=== PATIENT | female | born 1975 ===

== ENCOUNTER 2017-09-27 08:58 | Inpatient (IN) | payer SELFPAY ==
[2017-09-27 08:58] VITALS: BMI 27.0
--- NOTE | 2017-09-27 09:16 | ED PDOC ---
HPI: General Adult Time Seen by Provider: 09/27/17 09:10 Chief Complaint (Nursing): Flu-like Symptoms Chief Complaint (Provider): Flu-like Symptoms History Per: Patient History/Exam Limitations: no limitations Onset/Duration Of Symptoms: Days (x2) Current Symptoms Are (Timing): Still Present Additional Complaint(s): Trudy Blanco is a 42 year old female with no significant past medical history, who presents to the ED complaining of a productive cough with yellow sputum associated with right sided chest pain x2 days. Denies shortness of breath and fever. PMD: Non-[facility] Provider Past Medical History Reviewed: Historical Data, Nursing Documentation, Vital Signs Vital Signs: Last Vital Signs Temp 98.3 F 09/27/17 09:05 Pulse 82 09/27/17 09:05 Resp 20 09/27/17 09:05 BP 148/88 09/27/17 09:05 Pulse Ox 98 09/27/17 10:28 - Medical History PMH: Anemia, Gall Bladder Disease Denies: Chronic Kidney Disease - Surgical History Surgical History: Cholecystectomy - Family History Family History: States: Unknown Family Hx - Home Medications Home Medications: Ambulatory Orders Medication Instructions Recorded Docusate Sodium/Sennosides A 2 tab PO Q12 PRN #0 tab 11/18/16 [Senokot S 50 MG-8.6 MG] Ferrous Sulfate [Feosol] 325 mg PO DAILY #30 tab 11/18/16 Ibuprofen [Motrin Tab] 600 mg PO Q6 PRN #30 tab 11/18/16 oxyCODONE/Acetaminophen [Percocet 2 tab PO Q4 PRN #30 tab 11/18/16 5/325 mg Tab] - Allergies Allergies/Adverse Reactions: Allergies Allergy/AdvReac Type Severity Reaction Status Date / Time No Known Allergies Allergy Verified 09/27/17 09:05 Review of Systems ROS Statement: Except As Marked, All Systems Reviewed And Found Negative Constitutional: Negative for: Fever Cardiovascular: Positive for: Chest Pain (left sided) Respiratory: Positive for: Cough, Sputum (yellow). Negative for: Shortness of Breath Physical Exam - Reviewed Nursing Documentation Reviewed: Yes Vital Signs Reviewed: Yes - Physical Exam Appears: Positive for: Non-toxic, No Acute Distress ENT: Positive for: Normal ENT Inspection Neck: Positive for: Normal, Painless ROM, Supple Cardiovascular/Chest: Positive for: Regular Rate, Rhythm. Negative for: Murmur Respiratory: Positive for: Rhonchi (scattered). Negative for: Wheezing, Respiratory Distress Extremity: Positive for: Normal ROM. Negative for: Tenderness, Swelling Neurologic/Psych: Positive for: Alert, Oriented (x3) - Laboratory Results Result Diagrams: 09/27/17 09:58 09/27/17 09:58 - ECG O2 Sat by Pulse Oximetry: 98 (RA) Pulse Ox Interpretation: Normal Medical Decision Making Medical Decision Makin:13 Initial Impression: Bronchitis Plan: --Chest X-Ray 2 views --CT Abd and Pelvis --CMP --CBC w/ differential --Sodium Chloride 0.9% 1,000 ml IV --Iohexol 50 ml PO --Reevaluation 10:09 Chest X-Ray FINDINGS: LUNGS: No active pulmonary disease. PLEURA: No significant pleural effusion identified. No pneumothorax apparent. CARDIOVASCULAR: Normal. OSSEOUS STRUCTURES: No significant abnormalities. VISUALIZED UPPER ABDOMEN: Free intraperitoneal air. Right upper quadrant surgical clips. OTHER FINDINGS: None. IMPRESSION: No acute pulmonary disease. Free intraperitoneal air. Scribe Attestation: Documented by Jonatan Lee acting as a scribe for Kush Mayer MD. Scribe Attestation: All medical record entries made by the Scribe were at my direction and personally dictated by me. I have reviewed the chart and agree that the record accurately reflects my personal performance of the history, physical exam, medical decision making, and the department course for this patient. I have also personally directed, reviewed, and agree with the discharge instructions and disposition. Disposition - Clinical Impression Clinical Impression: Pneumoperitoneum - Patient ED Disposition Is Patient to be Admitted: Yes - Disposition Disposition Time: 12:49 Condition: FAIR Forms: Q Chip (Greek) - Pt Status Changed To: Hospital Disposition Of: Observation - POA Present On Arrival: None
[2017-09-27] MEDS ORDERED: Iohexol 240 (50 ml) PO ONE (09:49)
[2017-09-27] MEDS ORDERED: Sodium Chloride 0.9% 1,000 ML IV STA (09:50)
--- NOTE | 2017-09-27 09:53 | RAD ---
HISTORY: cough COMPARISON: No prior. TECHNIQUE: Chest PA and lateral FINDINGS: LUNGS: No active pulmonary disease. PLEURA: No significant pleural effusion identified. No pneumothorax apparent. CARDIOVASCULAR: Normal. OSSEOUS STRUCTURES: No significant abnormalities. VISUALIZED UPPER ABDOMEN: Free intraperitoneal air. Right upper quadrant surgical clips. OTHER FINDINGS: None. IMPRESSION: No acute pulmonary disease. Free intraperitoneal air. Findings conveyed to Dr. Mayer by Dr. Duque at 9:47 a.m. on 09/27/2017.
[2017-09-27] MEDS ORDERED: Iohexol 240 (50 ml) ONE (09:58)
[2017-09-27 10:03] LABS: BASO # 0.1 K/uL (0.0-0.2); BASO % 0.8 % (0.0-2.0); EOS # 0.3 K/uL (0.0-0.7); EOS % 3.7 % (0.0-4.0); HEMOGLOBIN 13.9 g/dL (12.0-16.0); LYMPH # 1.9 K/uL (1.0-4.3); LYMPH % 24.9 % (20.0-40.0); MEAN CELL VOLUME 89.5 fl (81.0-99.0); MEAN CORPUSCULAR HEMOGLOBIN 30.5 pg (27.0-31.0); MEAN CORPUSCULAR HGB CONC 34.1 g/dL (33.0-37.0); MONO # 0.9 K/uL (0.0-0.8); NEUT # 4.4 K/uL (1.8-7.0); NEUT % 58.6 % (50.0-75.0); NRBC % 0.1 % (0.0-0.0); RBC 4.55 Mil/uL (3.80-5.20); RED CELL DISTRIBUTION WIDTH 13.4 % (11.5-14.5); WHITE BLOOD COUNT 7.6 K/uL (4.8-10.8)
[2017-09-27 10:14] LABS: ALB/GLOB RATIO 1.2 (1.0-2.1); ALBUMIN 4.1 g/dL (3.5-5.0); ALT/SGPT 48 U/L (9-52); AST/SGOT 20 U/L (14-36); BLOOD UREA NITROGEN 12 mg/dl (7-17); CALCIUM 8.7 mg/dL (8.4-10.2); GFR AFRICAN-AMERICAN > 60; GFR NON-AFRICAN AMERICAN > 60
--- NOTE | 2017-09-27 12:36 | CT ---
PROCEDURE: CT Abdomen and Pelvis without intravenous contrast HISTORY: Free air under diaphragm on CXE COMPARISON: None. TECHNIQUE: Without contrast.. Contrast Dose: 0 Radiation dose: Total exam DLP = 529.86 mGy-cm. This CT exam was performed using one or more of the following dose reduction techniques: Automated exposure control, adjustment of the mA and/or kV according to patient size, and/or use of iterative reconstruction technique. FINDINGS: LOWER THORAX: Unremarkable. LIVER: Unremarkable. No gross lesion or ductal dilatation. GALLBLADDER AND BILE DUCTS: Status post cholecystectomy PANCREAS: Unremarkable. No gross lesion or ductal dilatation. SPLEEN: Unremarkable. ADRENALS: Unremarkable. No mass. KIDNEYS AND URETERS: Unremarkable. No hydronephrosis. No solid mass. VASCULATURE: Unremarkable. No aortic aneurysm. BOWEL: Unremarkable. No obstruction. No gross mural thickening. APPENDIX: Unremarkable. Normal appendix. PERITONEUM: There is moderate free air beneath the diaphragm. There is no ascites. The source of the pneumoperitoneum is not evident. LYMPH NODES: Unremarkable. No enlarged lymph nodes. BLADDER: Unremarkable. REPRODUCTIVE: Status post hysterectomy. BONES: No acute fracture. OTHER FINDINGS: None. IMPRESSION: Free intraperitoneal air without evident source. No abnormal bowel appreciated. Status post cholecystectomy and hysterectomy.
--- NOTE | 2017-09-27 13:57 | CP.PCM.HP ---
<Drew Metz - Last Filed: 09/27/17 14:33> History of Present Illness - History of Present Illness History of Present Illness: 42 YO nulligravida F w/ h/o NEFTALI on 11/2016 presents to the ER for right sided shoulder pain which is reproducible on palpation as well as a cough and nasal congestion which has been ongoing for the past three days. When patient coughs she has been having epigastric pain which is 5/10 in intensity and radiates to the right shoulder. Denies any trauma, SOB, nausea, vomiting , fever. This has never occurred in the past. She has been having normal bowl movements with no blood in the stool. Patient last had sexual intercourse 2 days ago, with no discomfort. Denies any abnormal vaginal discharge. PMHx: Chronic Anemia, Uterine fibroids, Gallstones, FHx: Denies PSHx: Lap. Cholecystectomy, [facility] 11/04/16 ScHx: Denies TOB, ETOH, Drugs OBHx: Nulligravida GYNHx: Menorrhagia requring blood transfusions, Uterine fibroids. [facility] 11/04/16 PCP: [facility] OBGYN: Dr Gastelum Allergies: NKDDA Home Meds: See med list Present on Admission - Present on Admission Any Indicators Present on Admission: No Past Patient History - Infectious Disease Hx of Infectious Diseases: None - Past Medical History & Family History Past Medical History?: Yes - Past Social History Smoking Status: Never Smoked - CARDIAC Hx Cardiac Disorders: No - NEUROLOGICAL Hx Neurological Disorder: No - HEENT Hx HEENT Problems: No - RENAL Hx Chronic Kidney Disease: No - ENDOCRINE/METABOLIC Hx Endocrine Disorders: No - HEMATOLOGICAL/ONCOLOGICAL Hx Anemia: Yes - INTEGUMENTARY Hx Dermatological Problems: No - MUSCULOSKELETAL/RHEUMATOLOGICAL Hx Musculoskeletal Disorders: No Hx Falls: No - GASTROINTESTINAL Hx Gall Bladder Disease: Yes - GENITOURINARY/GYNECOLOGICAL Hx Genitourinary Disorders: Yes Other/Comment: Abnormal uterine bleeding (AUB), Uterine fibroids - PSYCHIATRIC Hx Psychophysiologic Disorder: No Hx Emotional Abuse: No Hx Physical Abuse: No Hx Substance Use: No - SURGICAL HISTORY Hx Cholecystectomy: Yes - ANESTHESIA Hx Anesthesia: Yes Hx Anesthesia Reactions: No Hx Malignant Hyperthermia: No Meds Allergies/Adverse Reactions: Allergies Allergy/AdvReac Type Severity Reaction Status Date / Time No Known Allergies Allergy Verified 09/27/17 09:05 Physical Exam - Constitutional Appears: No Acute Distress - Head Exam Head Exam: NORMAL INSPECTION - Eye Exam Eye Exam: Normal appearance - Respiratory Exam Respiratory Exam: Clear to Auscultation Bilateral, NORMAL BREATHING PATTERN. absent: Rales, Rhonchi, Wheezes - Cardiovascular Exam Cardiovascular Exam: REGULAR RHYTHM, +S1, +S2 - GI/Abdominal Exam GI & Abdominal Exam: Normal Bowel Sounds, Soft. absent: Tenderness - Extremities Exam Extremities exam: Positive for: normal inspection. Negative for: calf tenderness Additional comments: right shoulder tenderness - Neurological Exam Neurological exam: Alert, CN II-XII Intact, Oriented x3 - Skin Skin Exam: Normal Color, Warm Results - Vital Signs Recent Vital Signs: Last Vital Signs Temp 98.3 F 09/27/17 09:05 Pulse 82 09/27/17 09:05 Resp 20 09/27/17 09:05 BP 148/88 09/27/17 09:05 Pulse Ox 98 09/27/17 12:49 - Labs Result Diagrams: 09/27/17 09:58 09/27/17 09:58 Labs: Laboratory Results - last 24 hr 09/27/17 09/27/17 09:58 09:58 WBC 7.6 RBC 4.55 Hgb 13.9 D Hct 40.7 MCV 89.5 MCH 30.5 MCHC 34.1 RDW 13.4 Plt Count 245 MPV 9.0 Neut % (Auto) 58.6 Lymph % (Auto) 24.9 [place] % (Auto) 12.0 H Eos % (Auto) 3.7 Baso % (Auto) 0.8 Neut # 4.4 Lymph # 1.9 [place] # 0.9 H Eos # 0.3 Baso # 0.1 Sodium 140 Potassium 3.8 Chloride 107 Carbon Dioxide 26 Anion Gap 11 BUN 12 Creatinine 0.6 L Est GFR ( Amer) > 60 Est GFR (Non-Af Amer) > 60 Random Glucose 101 Calcium 8.7 Total Bilirubin 0.4 AST 20 ALT 48 Alkaline Phosphatase 96 Total Protein 7.4 Albumin 4.1 Globulin 3.3 Albumin/Globulin Ratio 1.2 Assessment & Plan - Assessment and Plan (Free Text) Assessment: 42 YO F w/ h/o NEFTALI presented to the ED w/ reproducible right shoulder pain, cough and abdominal pain. On chest X ray was found to have free inraperitoneal air. 1) Free intraperitoneal air - IV Rocephin 1 g and Flagyl 500mg ( one dose) - CBC WNL - Chest X ray: Shows free intraperitoneal air - CT chest and abdomen:Free intraperitoneal air without evident source. No abnormal bowl appreciated. S/P cholecystectomy and hysterectomy - Surgery has been consulted 2) DVT prophylaxis - Hold until surgery recomendations <Jodie Jha - Last Filed: 09/28/17 07:44> Results - Vital Signs Recent Vital Signs: Last Vital Signs Temp 98.4 F 09/28/17 00:00 Pulse 76 09/28/17 00:00 Resp 18 09/28/17 00:00 BP 116/77 09/28/17 00:00 Pulse Ox 98 09/28/17 00:00 - Labs Result Diagrams: 09/28/17 05:55 09/28/17 05:55 Labs: Laboratory Results - last 24 hr 09/27/17 09/27/17 09/28/17 09:58 09:58 05:55 WBC 7.6 6.9 RBC 4.55 4.25 Hgb 13.9 D 12.8 Hct 40.7 37.9 MCV 89.5 89.0 MCH 30.5 30.1 MCHC 34.1 33.9 RDW 13.4 13.5 Plt Count 245 252 MPV 9.0 9.0 Neut % (Auto) 58.6 51.1 Lymph % (Auto) 24.9 33.2 [place] % (Auto) 12.0 H 11.2 H Eos % (Auto) 3.7 4.0 Baso % (Auto) 0.8 0.5 Neut # 4.4 3.5 Lymph # 1.9 2.3 [place] # 0.9 H 0.8 Eos # 0.3 0.3 Baso # 0.1 0.0 Sodium 140 Potassium 3.8 Chloride 107 Carbon Dioxide 26 Anion Gap 11 BUN 12 Creatinine 0.6 L Est GFR ( Amer) > 60 Est GFR (Non-Af Amer) > 60 Random Glucose 101 Calcium 8.7 Total Bilirubin 0.4 AST 20 ALT 48 Alkaline Phosphatase 96 Total Protein 7.4 Albumin 4.1 Globulin 3.3 Albumin/Globulin Ratio 1.2 09/28/17 05:55 WBC RBC Hgb Hct MCV MCH MCHC RDW Plt Count MPV Neut % (Auto) Lymph % (Auto) [place] % (Auto) Eos % (Auto) Baso % (Auto) Neut # Lymph # [place] # Eos # Baso # Sodium 137 Potassium 3.5 L Chloride 109 H Carbon Dioxide 22 Anion Gap 10 BUN 9 Creatinine 0.5 L Est GFR ( Amer) > 60 Est GFR (Non-Af Amer) > 60 Random Glucose 77 Calcium 8.1 L Total Bilirubin 0.3 AST 23 ALT 46 Alkaline Phosphatase 80 Total Protein 6.4 Albumin 3.5 Globulin 3.0 Albumin/Globulin Ratio 1.2 Attending/Attestation - Attestation I have personally seen and examined this patient.: Yes I have fully participated in the care of the patient.: Yes I have reviewed all pertinent clinical information: Yes Notes (Text): 09/28/17 07:44 Attending note ATTESATION Chart reviewed. case discussed with resident. Surgical consult pending. Agree with findings and plan.
[2017-09-27] MEDS ORDERED: metroNIDAZOLE 500mg/100ml NS 250 MG in Premixed IV 1 EA IVPB ONE (14:17)
--- NOTE | 2017-09-27 14:32 | CP.PCM.CON ---
History of Present Illness - History of Present Illness History of Present Illness: GENERAL SURGERY CONSULT NOTE FOR DR. MORALES 42yo F with PMHx of anemia, fibroids s/p hysterectomy 10 months ago presents to the ED with cough and right shoulder pain. She has been having a productive cough for 3 days as well as right shoulder pain for 3 days. She has associated rhinorrhea. Denies sore throat, fever, nausea, vomiting, diarrhea, dysuria. She is having normal BMs. A Chest X-ray was done which had incidental finding of free air under the diaphragm. CT Abd/Pelvis with PO contrast was then done and showed moderate free air beneath the diaphragm with unclear etiology of free air. Patient denies having any abdominal pain at all. She took Naproxen yesterday for the shoulder pain but does not usually take NSAIDS. Never had a colonoscopy or endoscopy. PMHx: anemia, fibroids s/p hysterectomy Surgeries: laparoscopic cholecystectomy, total abdominal hysterectomy here at [facility] on 11/16/16 Allergies: none Social history: denies etoh, tobacco abuse or illicit drug use Review of Systems - Review of Systems All systems: reviewed and no additional remarkable complaints except (as per HPI ) Past Patient History - Infectious Disease Hx of Infectious Diseases: None - Past Medical History & Family History Past Medical History?: Yes - Past Social History Smoking Status: Never Smoked Alcohol: None Drugs: Denies - CARDIAC Hx Cardiac Disorders: No - NEUROLOGICAL Hx Neurological Disorder: No - HEENT Hx HEENT Problems: No - RENAL Hx Chronic Kidney Disease: No - ENDOCRINE/METABOLIC Hx Endocrine Disorders: No - HEMATOLOGICAL/ONCOLOGICAL Hx Anemia: Yes - INTEGUMENTARY Hx Dermatological Problems: No - MUSCULOSKELETAL/RHEUMATOLOGICAL Hx Musculoskeletal Disorders: No Hx Falls: No - GASTROINTESTINAL Hx Gall Bladder Disease: Yes - GENITOURINARY/GYNECOLOGICAL Hx Genitourinary Disorders: Yes Other/Comment: Abnormal uterine bleeding (AUB), Uterine fibroids - PSYCHIATRIC Hx Psychophysiologic Disorder: No Hx Emotional Abuse: No Hx Physical Abuse: No Hx Substance Use: No - SURGICAL HISTORY Hx Cholecystectomy: Yes Hx Hysterectomy: Yes (11/16/16) - ANESTHESIA Hx Anesthesia: Yes Hx Anesthesia Reactions: No Hx Malignant Hyperthermia: No Meds Allergies/Adverse Reactions: Allergies Allergy/AdvReac Type Severity Reaction Status Date / Time No Known Allergies Allergy Verified 09/27/17 09:05 - Medications Medications: Current Medications Sodium Chloride (Sodium Chloride 0.9%) 1,000 mls @ 100 mls/hr IV .Q10H STA Stop: 09/27/17 19:49 Last Admin: 09/27/17 10:00 Dose: 100 mls/hr Sodium Chloride (Sodium Chloride 0.9%) 1,000 mls @ 125 mls/hr IV .Q8H NARENDRA Stop: 09/28/17 14:12 Ceftriaxone Sodium 1 gm/ (Sodium Chloride) 100 mls @ 100 mls/hr IVPB DAILY NARENDRA PRN Reason: Protocol Metronidazole 250 mg/ (Miscellaneous) 50 mls @ 50 mls/hr IVPB Q8 ONE PRN Reason: Protocol Stop: 09/27/17 15:16 Physical Exam - Constitutional Appears: Well, Non-toxic, No Acute Distress - Head Exam Head Exam: ATRAUMATIC, NORMAL INSPECTION - Eye Exam Eye Exam: EOMI, Normal appearance - Respiratory Exam Respiratory Exam: NORMAL BREATHING PATTERN. absent: Respiratory Distress - Cardiovascular Exam Cardiovascular Exam: +S1, +S2 - GI/Abdominal Exam GI & Abdominal Exam: Soft. absent: Distended, Firm, Guarding, Rebound, Rigid, Tenderness Additional comments: Non tender on deep palpation of all quadrants. Negative rebound. Well healed laparoscopic scars from cholecystectomy Low transverse incision healing well from hysterectomy in November - Neurological Exam Neurological exam: Alert, CN II-XII Intact, Oriented x3 - Psychiatric Exam Psychiatric exam: Normal Affect, Normal Mood - Skin Skin Exam: Dry, Normal Color, Warm Results - Vital Signs Recent Vital Signs: Last Vital Signs Temp 98.3 F 09/27/17 09:05 Pulse 82 09/27/17 09:05 Resp 20 09/27/17 09:05 BP 148/88 09/27/17 09:05 Pulse Ox 98 09/27/17 12:49 - Labs Result Diagrams: 09/27/17 09:58 09/27/17 09:58 Labs: Laboratory Results - last 24 hr 09/27/17 09/27/17 09:58 09:58 WBC 7.6 RBC 4.55 Hgb 13.9 D Hct 40.7 MCV 89.5 MCH 30.5 MCHC 34.1 RDW 13.4 Plt Count 245 MPV 9.0 Neut % (Auto) 58.6 Lymph % (Auto) 24.9 [place] % (Auto) 12.0 H Eos % (Auto) 3.7 Baso % (Auto) 0.8 Neut # 4.4 Lymph # 1.9 [place] # 0.9 H Eos # 0.3 Baso # 0.1 Sodium 140 Potassium 3.8 Chloride 107 Carbon Dioxide 26 Anion Gap 11 BUN 12 Creatinine 0.6 L Est GFR ( Amer) > 60 Est GFR (Non-Af Amer) > 60 Random Glucose 101 Calcium 8.7 Total Bilirubin 0.4 AST 20 ALT 48 Alkaline Phosphatase 96 Total Protein 7.4 Albumin 4.1 Globulin 3.3 Albumin/Globulin Ratio 1.2 Assessment & Plan - Assessment and Plan (Free Text) Assessment: 42yo F with PMHx of anemia, fibroids s/p hysterectomy 10 months ago who presented with cough and right shoulder pain. Surgery consulted for incidental finding of free air. Free air appears to be benign of unclear etiology. Patient completely asymptomatic. - Upper GI with gastrograffin ordered to rule out perforation - No plans for surgical at this time since the patient is asymptomatic - Protonix - Pain control - NPO until Upper GI is done - Discussed plan with Dr. Daniel Carrillo PGY-3
[2017-09-27] MEDS ORDERED: Oxycodone/Acetaminophen 5/325 mg Tab PO PRN (14:36)
[2017-09-27] MEDS ORDERED: Promethazine DM 6.25 mg-15 mg/5 ml Syrup PO PRN (14:42)
[2017-09-27] MEDS ORDERED: metroNIDAZOLE 500mg/100ml NS 100 ML IVPB ONE (16:17)
[2017-09-27] MEDS: Sodium Chloride 0.9% 1,000 ML IV SCH (22:33)
[2017-09-28 06:08] LABS: BASO % 0.5 % (0.0-2.0); EOS # 0.3 K/uL (0.0-0.7); HEMOGLOBIN 12.8 g/dL (12.0-16.0); LYMPH # 2.3 K/uL (1.0-4.3); LYMPH % 33.2 % (20.0-40.0); MEAN CORPUSCULAR HEMOGLOBIN 30.1 pg (27.0-31.0); MEAN CORPUSCULAR HGB CONC 33.9 g/dL (33.0-37.0); MONO # 0.8 K/uL (0.0-0.8); MONO % 11.2 % (0.0-10.0); NEUT # 3.5 K/uL (1.8-7.0); NEUT % 51.1 % (50.0-75.0); RBC 4.25 Mil/uL (3.80-5.20); RED CELL DISTRIBUTION WIDTH 13.5 % (11.5-14.5); WHITE BLOOD COUNT 6.9 K/uL (4.8-10.8)
[2017-09-28 06:30] LABS: ALB/GLOB RATIO 1.2 (1.0-2.1); ALBUMIN 3.5 g/dL (3.5-5.0); ALT/SGPT 46 U/L (9-52); AST/SGOT 23 U/L (14-36); BLOOD UREA NITROGEN 9 mg/dl (7-17); CALCIUM 8.1 mg/dL (8.4-10.2); GFR AFRICAN-AMERICAN > 60; GFR NON-AFRICAN AMERICAN > 60
[2017-09-28] MEDS: Sodium Chloride 0.9% 1,000 ML IV SCH (06:38)
--- NOTE | 2017-09-28 08:49 | CP.PCM.PN ---
Subjective - Date & Time of Evaluation Date of Evaluation: 09/28/17 Time of Evaluation: 07:00 - Subjective Subjective: GENERAL SURGERY PROGRESS NOTE FOR DR. MORALES Patient seen and examined at bedside. She states that she feels better and is hungry. She reported some mild RUQ pain. Denies nausea or vomiting. She is passing flatus. Objective - Vital Signs/Intake and Output Vital Signs (last 24 hours): Temp Pulse Resp BP Pulse Ox 98.2 F 67 20 131/79 98 09/28/17 07:49 09/28/17 07:49 09/28/17 07:49 09/28/17 07:49 09/28/17 07:49 - Medications Medications: Current Medications Sodium Chloride (Sodium Chloride 0.9%) 1,000 mls @ 125 mls/hr IV .Q8H [facility] Stop: 09/28/17 14:12 Last Admin: 09/28/17 06:38 Dose: 125 mls/hr Ondansetron HCl (Zofran Inj) 4 mg IVP Q6 PRN PRN Reason: Nausea/Vomiting Oxycodone/Acetaminophen (Percocet 5/325 Mg Tab) 1 tab PO Q4 PRN PRN Reason: Pain, severe (8-10) Stop: 09/30/17 14:37 Pantoprazole Sodium (Protonix Inj) 40 mg IVP DAILY [facility] Last Admin: 09/27/17 20:03 Dose: 40 mg Promethazine HCl/Dextromethorphan (Phenergan Dm Syrup) 5 ml PO Q8 PRN PRN Reason: Cough and congestion - Labs Labs: 09/28/17 05:55 09/28/17 05:55 - Constitutional Appears: Well, Non-toxic, No Acute Distress - Head Exam Head Exam: ATRAUMATIC, NORMAL INSPECTION - Eye Exam Eye Exam: EOMI, Normal appearance - Respiratory Exam Respiratory Exam: NORMAL BREATHING PATTERN. absent: Respiratory Distress - Cardiovascular Exam Cardiovascular Exam: +S1, +S2 - GI/Abdominal Exam GI & Abdominal Exam: Soft. absent: Distended, Firm, Guarding, Rigid, Tenderness , Rebound - Neurological Exam Neurological Exam: Alert, Awake, Oriented x3 - Psychiatric Exam Psychiatric exam: Normal Affect, Normal Mood - Skin Skin Exam: Dry, Normal Color, Warm Assessment and Plan - Assessment and Plan (Free Text) Assessment: 42yo F with PMHx of anemia, fibroids s/p hysterectomy who presented with cough and right shoulder pain. Surgery consulted for incidental finding of free air. Free air of unclear etiology - possibly perforated duodenal ulcer that has now sealed off. Pt asymptomatic. - Upper GI with gastrograffin done to rule out perforation. There was no contrast extravasation, but there was markedly delayed gastric emptying noted. - Recommend GI evaluation as outpatient, may need EGD in the future - Continue Protonix - Continue antibiotics due to possible previous duodenal perforation - Pain control PRN - Regular diet - If tolerates regular diet, may DC home tomorrow with Rx for Protonix and antibiotics for 5 days - Discussed plan with Dr. Daniel Carrillo PGY-3
[2017-09-28] MEDS ORDERED: Sterile Water 10 ML IV ONE (08:58)
--- NOTE | 2017-09-28 09:12 | CP.PCM.PN ---
<Siomara Cavazos - Last Filed: 09/29/17 07:07> Subjective - Date & Time of Evaluation Date of Evaluation: 09/28/17 Time of Evaluation: 09:12 - Subjective Subjective: 42 y/o female seen resting in bed this morning, stating she is feeling better and hungry at this time. Pt says she has some gas and feels a little bloated due to the fact she has not eaten since she got admitted. Pt has no other complaints and is generally feeling well. Denies F/C/N/V/CP/SOB. Objective - Vital Signs/Intake and Output Vital Signs (last 24 hours): Temp Pulse Resp BP Pulse Ox 98.2 F 67 20 131/79 98 09/28/17 07:49 09/28/17 07:49 09/28/17 07:49 09/28/17 07:49 09/28/17 07:49 - Medications Medications: Current Medications Sodium Chloride (Sodium Chloride 0.9%) 1,000 mls @ 125 mls/hr IV .Q8H [facility] Stop: 09/28/17 14:12 Last Admin: 09/28/17 06:38 Dose: 125 mls/hr Ondansetron HCl (Zofran Inj) 4 mg IVP Q6 PRN PRN Reason: Nausea/Vomiting Oxycodone/Acetaminophen (Percocet 5/325 Mg Tab) 1 tab PO Q4 PRN PRN Reason: Pain, severe (8-10) Stop: 09/30/17 14:37 Pantoprazole Sodium (Protonix Inj) 40 mg IVP DAILY [facility] Last Admin: 09/28/17 08:58 Dose: 40 mg Promethazine HCl/Dextromethorphan (Phenergan Dm Syrup) 5 ml PO Q8 PRN PRN Reason: Cough and congestion - Labs Labs: 09/28/17 05:55 09/28/17 05:55 - Constitutional Appears: Well, Non-toxic, No Acute Distress - Head Exam Head Exam: ATRAUMATIC, NORMOCEPHALIC - Eye Exam Eye Exam: EOMI, Normal appearance Pupil Exam: PERRL - ENT Exam ENT Exam: Mucous Membranes Moist, Normal Exam - Neck Exam Neck Exam: Full ROM, Normal Inspection. absent: Tenderness - Respiratory Exam Respiratory Exam: Clear to Ausculation Bilateral, NORMAL BREATHING PATTERN. absent: Wheezes - Cardiovascular Exam Cardiovascular Exam: REGULAR RHYTHM, +S1, +S2. absent: JVD - GI/Abdominal Exam GI & Abdominal Exam: Soft, Normal Bowel Sounds. absent: Guarding, Tenderness, Mass - Rectal Exam Rectal Exam: Deferred - Back Exam Back Exam: NORMAL INSPECTION - Neurological Exam Neurological Exam: Alert, Awake, Oriented x3 - Psychiatric Exam Psychiatric exam: Normal Affect, Normal Mood - Skin Skin Exam: Dry, Intact, Normal Color, Warm Assessment and Plan - Assessment and Plan (Free Text) Assessment: 42 YO F w/ hx of total abdominal hysterectomy in November 2016 admitted for free intraperitoneal air reproducible right shoulder pain, cough and abdominal pain. On chest X ray was found to have free inraperitoneal air. 1) Free intraperitoneal air - s/p 1 dose IV Rocephin 1 g and Flagyl 500mg in ED - CBC WNL - CXR: Shows free intraperitoneal air - CT abd/pelvis: free intraperitoneal air without evident source. No abnormal bowl appreciated. S/P cholecystectomy and hysterectomy - Surgery Dr. Sanchez on consult - Upper GI with gastrograffin done to rule out perforation -no contrast extravasation, but markedly delayed gastric emptying noted - Per surgery, recommend GI eval as outpatient, may need EGD in the future - Continue Protonix - Continue abx due to possible previous duodenal perforation - Pain control PRN -Rx for Protonix and antibiotics x 5 days if pt can tolerate regular PO diet - Regular diet resumed -c/w Ceftriaxone and Flagyl 2) DVT prophylaxis - Await further recs from surgery 3) Code status -full code <Jodie Jha - Last Filed: 09/30/17 07:41> Objective - Vital Signs/Intake and Output Vital Signs (last 24 hours): Temp Pulse Resp BP Pulse Ox 98.1 F 65 20 132/83 97 09/29/17 07:48 09/29/17 07:48 09/29/17 07:48 09/29/17 07:48 09/29/17 07:48 - Labs Labs: 09/28/17 05:55 09/28/17 05:55 Attending/Attestation - Attestation I have personally seen and examined this patient.: Yes I have fully participated in the care of the patient.: Yes I have reviewed all pertinent clinical information, including history, physical exam and plan: Yes Notes (Text): 09/30/17 07:40 ATTENDING NOTE ATTESTATION Patient seen and examined. Case discussed with resident. Agree with findings and plan.
[2017-09-28] MEDS ORDERED: Diatrizoate Meglumine 120 ML SOLN PO STA (09:45)
--- NOTE | 2017-09-28 12:34 | RAD ---
PROCEDURE: HISTORY: Free air, unclear etiology COMPARISON: CT abdomen and pelvis 09/27/2017 TECHNIQUE: Preliminary roofing sales representative found shows some contrast within the colon from preceding CT. The question of concern is regarding a possible duodenal ulcer with dilia extravasation Gastrografin was diluted. And then administered to the patient under intermittent fluoroscopic monitoring. FINDINGS: The esophagus appeared normal. Despite the additional administration of Gastrografin and patient positioning to facilitate -expedite gastric emptying, the patient a showed markedly delayed gastric emptying during fluoroscopic intermittent monitoring. With much delay, some contrast was finally visualized in the duodenal bulb and C sweep without gross extravasation appreciated On all of the available images, an during fluoroscopic intermittent monitoring, no gross contrast extravasation from the stomach , duodenum bulb or C sweep was evident.The 2nd duodenal segmental folds appear diffusely slightly thickened The gastric emptying delay was accentuating at the pyloric channel -duodenal bulb junction IMPRESSION: No gross extravasation of contrast from the stomach, duodenum or C sweep. Markedly delayed gastric emptying -the contrast is still within the stomach at 1 hour -as per the overhead abdominal x-ray from the the beginning of the procedure Residual less dense contrast within the colon from preceding CT on 09/27/2017
[2017-09-28] MEDS: metroNIDAZOLE 500mg/100ml NS 100 ML IVPB SCH (20:28)
[2017-09-29 07:49] VITALS: BP 132/83; PULSE 65; RESP 20; TEMP 98.1; O2SAT 97
--- NOTE | 2017-09-29 09:12 | CP.PCM.DIS ---
Provider - Provider Date of Admission: 09/28/17 15:03 Attending physician: Rema Kwong MD Consults: Dr. Henderson (GI) Time Spent in preparation of Discharge (in minutes): 25 Diagnosis - Discharge Diagnosis (1) Pneumoperitoneum Status: Acute Priority: High Comment: -asymptomatic, workup (-) for perforation. -f/u GI Hospital Course - Lab Results Lab Results: Most Recent Lab Values WBC 6.9 K/uL (4.8-10.8) 09/28/17 05:55 RBC 4.25 Mil/uL (3.80-5.20) 09/28/17 05:55 Hgb 12.8 g/dL (12.0-16.0) 09/28/17 05:55 Hct 37.9 % (34.0-47.0) 09/28/17 05:55 MCV 89.0 fl (81.0-99.0) 09/28/17 05:55 MCH 30.1 pg (27.0-31.0) 09/28/17 05:55 MCHC 33.9 g/dL (33.0-37.0) 09/28/17 05:55 RDW 13.5 % (11.5-14.5) 09/28/17 05:55 Plt Count 252 K/uL (130-400) 09/28/17 05:55 MPV 9.0 fl (7.2-11.7) 09/28/17 05:55 Neut % (Auto) 51.1 % (50.0-75.0) 09/28/17 05:55 Lymph % (Auto) 33.2 % (20.0-40.0) 09/28/17 05:55 Rush % (Auto) 11.2 % (0.0-10.0) H 09/28/17 05:55 Eos % (Auto) 4.0 % (0.0-4.0) 09/28/17 05:55 Baso % (Auto) 0.5 % (0.0-2.0) 09/28/17 05:55 Neut # 3.5 K/uL (1.8-7.0) 09/28/17 05:55 Lymph # 2.3 K/uL (1.0-4.3) 09/28/17 05:55 Rush # 0.8 K/uL (0.0-0.8) 09/28/17 05:55 Eos # 0.3 K/uL (0.0-0.7) 09/28/17 05:55 Baso # 0.0 K/uL (0.0-0.2) 09/28/17 05:55 Sodium 137 mmol/l (132-148) 09/28/17 05:55 Potassium 3.5 MMOL/L (3.6-5.0) L 09/28/17 05:55 Chloride 109 mmol/L (98-107) H 09/28/17 05:55 Carbon Dioxide 22 mmol/L (22-30) 09/28/17 05:55 Anion Gap 10 (10-20) 09/28/17 05:55 BUN 9 mg/dl (7-17) 09/28/17 05:55 Creatinine 0.5 mg/dl (0.7-1.2) L 09/28/17 05:55 Est GFR ( Amer) > 60 09/28/17 05:55 Est GFR (Non-Af Amer) > 60 09/28/17 05:55 Random Glucose 77 mg/dL (65-105) 09/28/17 05:55 Calcium 8.1 mg/dL (8.4-10.2) L 09/28/17 05:55 Total Bilirubin 0.3 mg/dl (0.2-1.3) 09/28/17 05:55 AST 23 U/L (14-36) 09/28/17 05:55 ALT 46 U/L (9-52) 09/28/17 05:55 Alkaline Phosphatase 80 U/L (38-126) 09/28/17 05:55 Total Protein 6.4 G/DL (6.3-8.2) 09/28/17 05:55 Albumin 3.5 g/dL (3.5-5.0) 09/28/17 05:55 Globulin 3.0 gm/dL (2.2-3.9) 09/28/17 05:55 Albumin/Globulin Ratio 1.2 (1.0-2.1) 09/28/17 05:55 - Hospital Course Hospital Course: 42 y/o female with no significant PMHx admitted for pneumoperitoneum, identified on CXR and confirmed with abdomen/pelvis CT. Patient was evaluated by general surgery Dr. Sanchez and underwent an upper GI radiographic series with gastrograffin contrast, which identified delayed gastric emptying but no signs of contrast extravasation. Patient received two days of IV Ceftriaxone and Flagyl as well as Protonix. Patient will be discharged home in stable condition with prescriptions for Ciprofloxacin, Flagyl and Protonix and will follow up with GI Dr. Henderson in [facility] clinic on 10/10/16. Discharge Exam - Head Exam Head Exam: ATRAUMATIC, NORMOCEPHALIC - Eye Exam Eye Exam: EOMI, Normal appearance Pupil Exam: PERRL - ENT Exam ENT Exam: Mucous Membranes Moist - Neck Exam Neck exam: Full Rom - Respiratory Exam Respiratory Exam: NORMAL BREATHING PATTERN, UNREMARKABLE - Cardiovascular Exam Cardiovascular Exam: REGULAR RHYTHM, +S1, +S2. absent: JVD - GI/Abdominal Exam GI & Abdominal Exam: Normal Bowel Sounds, Soft. absent: Tenderness - Rectal Exam Rectal Exam: Deferred - Extremities Exam Extremities exam: normal capillary refill, normal inspection - Back Exam Back exam: NORMAL INSPECTION - Neurological Exam Neurological exam: Alert, Oriented x3 - Psychiatric Exam Psychiatric exam: Normal Affect, Normal Mood - Skin Skin Exam: Dry, Intact, Normal Color Discharge Plan - Discharge Medications Prescriptions: Ciprofloxacin [Cipro] 500 mg PO DAILY #5 tab Metronidazole [Flagyl] 500 mg PO Q12 5 Days tablet Pantoprazole Sodium [Protonix] 20 mg PO DAILY #30 ect - Follow Up Plan Condition: FAIR Disposition: HOME/ ROUTINE Instructions: Acute Abdominal Pain (DC) Additional Instructions: F/U at [facility] GI clinic with Dr. Henderson on 10/10/16 at 10am (scheduled appt) Referrals: [facility] [Outside] Santiago POLLARD,MD [place] [Medical Doctor] -
[2017-09-29] MEDS: metroNIDAZOLE 500mg/100ml NS 100 ML IVPB SCH (09:58)
== END 2017-09-29 12:20 | disposition home or self-care (01) | DRG 189 ==
LOC: H.ER 08:58 → H.ERHOLD 12:50 → H.MEDSURG1 14:35 → OBSVTOIN 09-28 15:03
PROVIDERS: ADMIT Family Medicine Geriatric Medicine; ATTEND Family Medicine Geriatric Medicine
DX: K66.8 Other specified disorders of peritoneum (principal); D25.9 Leiomyoma of uterus, unspecified; J40 Bronchitis, not specified as acute or chronic; D64.9 Anemia, unspecified; Z87.11 Personal history of peptic ulcer disease; Z90.49 Acquired absence of other specified parts of digestive tract; Z90.710 Acquired absence of both cervix and uterus

== ENCOUNTER 2017-12-19 09:29 | Emergency (ER) | payer OTHER ==
[2017-12-19 09:30] VITALS: BMI 27.0
[2017-12-19 10:18] VITALS: BP 131/78; PULSE 62; RESP 17; TEMP 97; O2SAT 97
--- NOTE | 2017-12-19 11:59 | ED PDOC ---
Upper Extremity Pain/Injury Time Seen by Provider: 12/19/17 10:20 Chief Complaint (Nursing): Upper Extremity Problem/Injury Chief Complaint (Provider): Left shoulder and left chest pain History Per: Patient History/Exam Limitations: no limitations Current Symptoms Are (Timing): Still Present Exacerbating Factor(s): Strenuous Use Of Affected Area Additional Complaint(s): 42yo female with no past medical history, presents to the ER with complaints of left shoulder and left chest pain, ongoing for the past 1 week. Patient states the pain is only present with movement of her left arm. She denies any redness or swelling to the area. Patient also denies any midsternal chest pain, shortness of breath, fever, chills, breast masses, numbness or weakness. Patient reports she is concerned as she recently had a mammogram which revealed a benign cyst in her left breast; patient states she has not followed up with her PCP regarding these results. She currently, denies any other medical complaints. PCP: Rose Lucas Past Medical History Reviewed: Historical Data, Nursing Documentation, Vital Signs Vital Signs: Last Vital Signs Temp 97 F L 12/19/17 10:14 Pulse 62 12/19/17 10:14 Resp 17 12/19/17 10:14 BP 131/78 12/19/17 10:14 Pulse Ox 97 12/19/17 10:14 - Medical History PMH: Anemia, Gall Bladder Disease Denies: HIV, Chronic Kidney Disease - Surgical History Surgical History: Cholecystectomy Other surgeries: hysterectomy - Family History Family History: States: Unknown Family Hx - Home Medications Home Medications: Ambulatory Orders Medication Instructions Recorded Docusate Sodium/Sennosides A 2 tab PO Q12 PRN #0 tab 11/18/16 [Senokot S 50 MG-8.6 MG] Ferrous Sulfate [Feosol] 325 mg PO DAILY #30 tab 11/18/16 Ciprofloxacin [Cipro] 500 mg PO DAILY #5 tab 09/29/17 Metronidazole [Flagyl] 500 mg PO Q12 5 Days tablet 09/29/17 Pantoprazole Sodium [Protonix] 20 mg PO DAILY #30 ect 09/29/17 Naproxen 500 mg PO BID #20 ect 12/19/17 - Allergies Allergies/Adverse Reactions: Allergies Allergy/AdvReac Type Severity Reaction Status Date / Time No Known Allergies Allergy Verified 09/27/17 09:05 Review of Systems ROS Statement: Except As Marked, All Systems Reviewed And Found Negative Constitutional: Negative for: Fever, Chills Cardiovascular: Negative for: Chest Pain Respiratory: Negative for: Shortness of Breath Musculoskeletal: Positive for: Shoulder Pain (left shoulder and chest pain) Skin: Negative for: Other (redness, swelling to left shoulder and surrounding area) Physical Exam - Reviewed Nursing Documentation Reviewed: Yes Vital Signs Reviewed: Yes - Physical Exam Appears: Positive for: Non-toxic, No Acute Distress Head Exam: Positive for: ATRAUMATIC, NORMAL INSPECTION, NORMOCEPHALIC Skin: Positive for: Normal Color Eye Exam: Positive for: Normal appearance, EOMI, PERRL Neck: Positive for: Supple Cardiovascular/Chest: Positive for: Regular Rate, Rhythm. Negative for: Chest Non Tender (tender left shoulder/pectoral area), Murmur Respiratory: Positive for: Normal Breath Sounds. Negative for: Respiratory Distress Gastrointestinal/Abdominal: Positive for: Normal Exam, Soft. Negative for: Tenderness Extremity: Positive for: Normal ROM. Negative for: Tenderness, Deformity, Swelling Neurologic/Psych: Positive for: Alert, Oriented. Negative for: Motor/Sensory Deficits - ECG O2 Sat by Pulse Oximetry: 97 (RA) Pulse Ox Interpretation: Normal Medical Decision Making Medical Decision Making: Impression: Left shoulder pain, likely musculoskeletal plan: -- Discussed with patient that based on her presentation, symptoms are likely not cardiac related and are musculoskeletal. Patient given prescription for Naproxen to take for her pain and instructed to follow up with PCP in 2-3 days. Informed patient to follow up with her PCP without fail regarding her mammogram results. Scribe Attestation: Documented by Jocelynn Farmer, acting as a scribe for Eulalia Lizarraga MD. Provider Scribe Attestation: All medical record entries made by the Scribe were at my direction and personally dictated by me. I have reviewed the chart and agree that the record accurately reflects my personal performance of the history, physical exam, medical decision making, and the department course for this patient. I have also personally directed, reviewed, and agree with the discharge instructions and disposition. Disposition - Clinical Impression Clinical Impression: Arm pain, left - Patient ED Disposition Is Patient to be Admitted: No Doctor Will See Patient In The: Office Counseled Patient/Family Regarding: Studies Performed, Diagnosis, Need For Followup - Disposition Referrals: [facility] [Outside] Disposition: Routine/Home Disposition Time: 12:02 Condition: GOOD Additional Instructions: Take your medications as instructed. Follow up with your PCP in 3 days. Prescriptions: Naproxen 500 mg PO BID #20 ect Instructions: Muscle and Bone Pain (DC) Print Language: GREENLANDIC
== END 2017-12-19 11:36 | disposition home or self-care (01) ==
LOC: H.ER 09:29
DX: M79.602 Pain in left arm (principal); Z90.710 Acquired absence of both cervix and uterus

== ENCOUNTER 2018-07-09 00:10 | Emergency (ER) | payer MEDICAID, SELFPAY ==
[2018-07-09 00:23] VITALS: BMI 28.9
[2018-07-09 00:27] VITALS: RESP 18; TEMP 98.8
[2018-07-09] MEDS ORDERED: Sodium Chloride 0.9% 1,000 ML IV STA ×2 (01:12→01:13)
--- NOTE | 2018-07-09 01:19 | ED PDOC ---
HPI: Abdomen Chief Complaint (Provider): Diffuse abdominal pain x 2 days History Per: Patient History/Exam Limitations: no limitations Onset/Duration Of Symptoms: Days Additional Complaint(s): 43 yo female with no medical problems presents for evaluation of 2 days of diffuse abdominal pain, watery diarrhea and nausea. Pt denies similar in the past. Pt did not take anything at home for symptoms. No sick contacts. No fever/chills. <Clementine James - Last Filed: 07/09/18 02:33> <Sean Muñoz - Last Filed: 07/10/18 05:09> Time Seen by Provider: 07/09/18 00:36 Chief Complaint (Nursing): Abdominal Pain Supervising Attending Note - Attestation: I have reviewed all pertinent clinical information: Yes <Sean Muñoz - Last Filed: 07/10/18 05:09> Past Medical History Reviewed: Historical Data, Nursing Documentation, Vital Signs Vital Signs: Last Vital Signs Temp 98.8 F 07/09/18 00:23 Pulse 74 07/09/18 00:23 Resp 18 07/09/18 00:23 BP 128/75 07/09/18 00:23 Pulse Ox 98 07/09/18 00:23 - Medical History PMH: Anemia, Gall Bladder Disease Denies: HIV, Chronic Kidney Disease - Surgical History Surgical History: Cholecystectomy - Family History Family History: States: Unknown Family Hx <Clementine James - Last Filed: 07/09/18 02:33> Vital Signs: Last Vital Signs Temp 98.8 F 07/09/18 03:20 Pulse 60 07/09/18 03:20 Resp 18 07/09/18 03:20 BP 105/56 L 07/09/18 03:20 Pulse Ox 100 07/09/18 03:20 <Sean Muñoz - Last Filed: 07/10/18 05:09> - Home Medications Home Medications: Ambulatory Orders Medication Instructions Recorded RX: Docusate Sodium/Sennosides A 2 tab PO Q12 PRN #0 tab 11/18/16 [Senokot S 50 MG-8.6 MG] RX: Ferrous Sulfate [Feosol] 325 mg PO DAILY #30 tab 11/18/16 Metronidazole [Flagyl] 500 mg PO Q12 5 Days tablet 09/29/17 Pantoprazole Sodium [Protonix] 20 mg PO DAILY #30 ect 09/29/17 RX: Ciprofloxacin [Cipro] 500 mg PO DAILY #5 tab 09/29/17 RX: Naproxen 500 mg PO BID #20 ect 12/19/17 Dicyclomine [Bentyl] 20 mg PO Q6H PRN #20 tab 07/09/18 Ondansetron ODT [Zofran ODT] 4 mg PO QID #20 odt 07/09/18 - Allergies Allergies/Adverse Reactions: Allergies Allergy/AdvReac Type Severity Reaction Status Date / Time No Known Allergies Allergy Verified 07/09/18 00:23 Review of Systems ROS Statement: Except As Marked, All Systems Reviewed And Found Negative Constitutional: Negative for: Fever, Chills Gastrointestinal: Positive for: Nausea, Vomiting, Abdominal Pain, Diarrhea. Negative for: Constipation, Melena, Hematochezia Musculoskeletal: Negative for: Neck Pain, Shoulder Pain <Clementine James - Last Filed: 07/09/18 02:33> Physical Exam - Reviewed Nursing Documentation Reviewed: Yes Vital Signs Reviewed: Yes - Physical Exam Appears: Positive for: Well, Non-toxic, No Acute Distress Head Exam: Positive for: ATRAUMATIC, NORMAL INSPECTION, NORMOCEPHALIC Skin: Positive for: Normal Color, Warm, DRY Eye Exam: Positive for: Normal appearance ENT: Positive for: Normal ENT Inspection Neck: Positive for: Normal, Painless ROM Cardiovascular/Chest: Positive for: Regular Rate, Rhythm Respiratory: Positive for: Normal Breath Sounds. Negative for: Accessory Muscle Use, Respiratory Distress Gastrointestinal/Abdominal: Positive for: Normal Exam, Soft. Negative for: Tenderness, Mass, Guarding, Rebound Back: Positive for: Normal Inspection Extremity: Positive for: Normal ROM Neurologic/Psych: Positive for: Alert, Oriented <Clementine Jaems - Last Filed: 07/09/18 02:33> - Laboratory Results Result Diagrams: 07/09/18 01:28 07/09/18 01:28 - ECG O2 Sat by Pulse Oximetry: 98 Pulse Ox Interpretation: Normal <Clementine James - Last Filed: 07/09/18 02:33> - Laboratory Results Result Diagrams: 07/09/18 01:28 07/09/18 01:28 <Sean Muñoz - Last Filed: 07/10/18 05:09> Medical Decision Making Medical Decision Making: Labs WNL Pt feels better on re-evaluation. <Clementine James - Last Filed: 07/09/18 02:33> Disposition - Patient ED Disposition Is Patient to be Admitted: No Counseled Patient/Family Regarding: Diagnosis, Need For Followup, Rx Given - Disposition Disposition: Routine/Home Disposition Time: 02:34 <Clementine James - Last Filed: 07/09/18 02:33> <Sean Muñoz - Last Filed: 07/10/18 05:09> - Clinical Impression Clinical Impression: Gastroenteritis - Disposition Referrals: [facility] [Outside] Condition: GOOD Prescriptions: Dicyclomine [Bentyl] 20 mg PO Q6H PRN #20 tab PRN Reason: Cramping Ondansetron ODT [Zofran ODT] 4 mg PO QID #20 odt Instructions: Gastroenteritis (ED) Forms: [employer] (Ukrainian) Print Language: [place]LAND[place]
[2018-07-09 02:09] LABS: BASO % 0.2 % (0.0-2.0); EOS # 0.1 K/uL (0.0-0.7); EOS % 1.2 % (0.0-4.0); HEMOGLOBIN 13.4 g/dL (12.0-16.0); LYMPH # 1.5 K/uL (1.0-4.3); LYMPH % 16.2 % (20.0-40.0); MEAN CELL VOLUME 91.2 fl (81.0-99.0); MEAN CORPUSCULAR HEMOGLOBIN 31.2 pg (27.0-31.0); MEAN CORPUSCULAR HGB CONC 34.2 g/dL (33.0-37.0); MEAN PLATELET VOLUME 9.2 fl (7.2-11.7); MONO # 0.7 K/uL (0.0-0.8); NEUT # 7.1 K/uL (1.8-7.0); NEUT % 75.4 % (50.0-75.0); RBC 4.29 Mil/uL (3.80-5.20); WHITE BLOOD COUNT 9.4 K/uL (4.8-10.8)
[2018-07-09 02:27] LABS: ALB/GLOB RATIO 1.4 (1.0-2.1); ALBUMIN 4.2 g/dL (3.5-5.0); ALT/SGPT 35 U/L (9-52); AST/SGOT 18 U/L (14-36); BLOOD UREA NITROGEN 6 mg/dl (7-17); CALCIUM 8.9 mg/dL (8.4-10.2); GFR NON-AFRICAN AMERICAN > 60
[2018-07-09 03:22] VITALS: BP 105/56; PULSE 60; O2SAT 100
== END 2018-07-09 03:25 | disposition home or self-care (01) ==
LOC: H.ER 00:10
DX: K52.9 Noninfective gastroenteritis and colitis, unspecified (principal)
CPT/HCPCS: 80053; 85025; 96360; 99283; J2405; J7030

== ENCOUNTER 2018-08-02 09:53 | Emergency (ER) | payer SELFPAY ==
[2018-08-02 09:54] VITALS: BMI 28.9
[2018-08-02 10:06] VITALS: RESP 16
--- NOTE | 2018-08-02 10:47 | ED PDOC ---
HPI: Abdomen Time Seen by Provider: 08/02/18 10:21 Chief Complaint (Nursing): Abdominal Pain History Per: Patient Onset/Duration Of Symptoms: Other (2weeks) Severity: Mild Location Of Pain/Discomfort: LLQ Quality Of Discomfort: Unable To Describe Associated Symptoms: Urinary Symptoms. denies: Fever, Nausea, Vomiting, Diarrhea Exacerbating Factors: None Alleviating Factors: None Additional Complaint(s): LLQ abd pain assoc with dysuria x 2 weeks. Denies NVD. Denies fever H/o hysterectomy 2 years ago but retains ovaries. Past Medical History Vital Signs: Last Vital Signs Temp 98.4 F 08/02/18 10:05 Pulse 66 08/02/18 10:05 Resp 16 08/02/18 10:05 BP 120/74 08/02/18 10:05 Pulse Ox 99 08/02/18 10:05 - Medical History PMH: Anemia, Gall Bladder Disease Denies: HIV, Chronic Kidney Disease - Surgical History Surgical History: Cholecystectomy - Family History Family History: States: Unknown Family Hx - Home Medications Home Medications: Ambulatory Orders Medication Instructions Recorded Docusate Sodium/Sennosides A 2 tab PO Q12 PRN #0 tab 11/18/16 [Senokot S 50 MG-8.6 MG] Ferrous Sulfate [Feosol] 325 mg PO DAILY #30 tab 11/18/16 Ciprofloxacin [Cipro] 500 mg PO DAILY #5 tab 09/29/17 Metronidazole [Flagyl] 500 mg PO Q12 5 Days tablet 09/29/17 Pantoprazole Sodium [Protonix] 20 mg PO DAILY #30 ect 09/29/17 Naproxen 500 mg PO BID #20 ect 12/19/17 Dicyclomine [Bentyl] 20 mg PO Q6H PRN #20 tab 07/09/18 Ondansetron ODT [Zofran ODT] 4 mg PO QID #20 odt 07/09/18 Naproxen [Naprosyn] 500 mg PO Q12H #20 tab 08/02/18 - Allergies Allergies/Adverse Reactions: Allergies Allergy/AdvReac Type Severity Reaction Status Date / Time No Known Allergies Allergy Verified 07/09/18 00:23 Review of Systems Constitutional: Negative for: Fever Gastrointestinal: Positive for: Abdominal Pain. Negative for: Nausea, Vomiting, Diarrhea Genitourinary Female: Positive for: Dysuria, Frequency Musculoskeletal: Positive for: Back Pain Physical Exam - Physical Exam Appears: Positive for: Non-toxic, No Acute Distress Skin: Positive for: Normal Color, Warm, DRY Cardiovascular/Chest: Positive for: Regular Rate, Rhythm Respiratory: Positive for: CNT, Normal Breath Sounds Gastrointestinal/Abdominal: Positive for: Bowel Sounds, Soft, Tenderness (Mild tenderness LLQ) Back: Negative for: L CVA Tenderness, R CVA Tenderness - ECG O2 Sat by Pulse Oximetry: 99 Disposition - Clinical Impression Clinical Impression: Ovarian cyst - Patient ED Disposition Is Patient to be Admitted: No Counseled Patient/Family Regarding: Studies Performed, Diagnosis, Need For Followup, Rx Given - Disposition [facility] Disposition: Routine/Home Disposition Time: 12:45 Condition: FAIR Prescriptions: Naproxen [Naprosyn] 500 mg PO Q12H #20 tab Instructions: Ovarian Cysts Forms: [facility] (Panamanian) Print Language: GREENLANDIC
--- NOTE | 2018-08-02 12:14 | US ---
Date of service: 08/02/2018 HISTORY: LLQ pain COMPARISON: Pelvic ultrasound dated 07/14/2017. TECHNIQUE: Grayscale, color Doppler and spectral evaluation the pelvis performed transvaginally FINDINGS: UTERUS: Prior hysterectomy. CERVIX: No cervical abnormality identified. RIGHT OVARY: Measures 4.1 x 3.9 x 2.3 cm. 2.9 x 2.6 x 1.8 cm structure with lace-like internal echoes and increased through transmission. Normal flow. LEFT OVARY: Measures 3.1 x 2.5 x 1.6 cm. No solid mass. Normal flow. FREE FLUID: No significant free fluid noted. OTHER FINDINGS: None. IMPRESSION: Prior hysterectomy. 2.9 cm right hemorrhagic cyst.
[2018-08-02 13:13] VITALS: BP 121/84; PULSE 71; TEMP 98.5; O2SAT 98
== END 2018-08-02 13:00 | disposition home or self-care (01) ==
LOC: H.ER 09:53
DX: N83.202 Unspecified ovarian cyst, left side (principal)

== ENCOUNTER 2018-08-23 10:00 | Emergency (ER) | payer SELFPAY ==
[2018-08-23 10:01] VITALS: BMI 28.9
[2018-08-23 10:05] VITALS: PULSE 66
[2018-08-23] MEDS ORDERED: Naproxen 500 MG TAB PO STA (10:35)
[2018-08-23] MEDS ORDERED: Naproxen 500 MG TAB PO ONE (10:37)
--- NOTE | 2018-08-23 11:05 | ED PDOC ---
HPI: General Adult Time Seen by Provider: 08/23/18 10:25 Chief Complaint (Nursing): Breast Problem Chief Complaint (Provider): Breast Problem History Per: Patient History/Exam Limitations: no limitations Onset/Duration Of Symptoms: Days (x7) Current Symptoms Are (Timing): Constant Additional Complaint(s): Trudy Blanco is a 43 year old female with a past medical history of anemia who is presenting to the ED for evaluation of constant pain underneath left armpit onset 1 week ago. Patient denies any fevers or cough. She offers no other medical complaints at this time. PMD: none provided Past Medical History Reviewed: Historical Data, Nursing Documentation, Vital Signs Vital Signs: Last Vital Signs Temp 97.7 F 08/23/18 10:04 Pulse 66 08/23/18 10:04 Resp 17 08/23/18 10:04 BP 152/76 H 08/23/18 10:04 Pulse Ox 100 08/23/18 10:04 - Medical History PMH: Anemia, Gall Bladder Disease Denies: HIV, Chronic Kidney Disease - Surgical History Surgical History: Cholecystectomy Other surgeries: hysterectomy - Family History Family History: States: Unknown Family Hx - Social History Current smoker - smoking cessation education provided: No Alcohol: None Drugs: Denies - Home Medications Home Medications: Ambulatory Orders Medication Instructions Recorded Docusate Sodium/Sennosides A 2 tab PO Q12 PRN #0 tab 11/18/16 [Senokot S 50 MG-8.6 MG] Ferrous Sulfate [Feosol] 325 mg PO DAILY #30 tab 11/18/16 Ciprofloxacin [Cipro] 500 mg PO DAILY #5 tab 09/29/17 Metronidazole [Flagyl] 500 mg PO Q12 5 Days tablet 09/29/17 Pantoprazole Sodium [Protonix] 20 mg PO DAILY #30 ect 09/29/17 Naproxen 500 mg PO BID #20 ect 12/19/17 Dicyclomine [Bentyl] 20 mg PO Q6H PRN #20 tab 07/09/18 Ondansetron ODT [Zofran ODT] 4 mg PO QID #20 odt 07/09/18 Naproxen [Naprosyn] 500 mg PO Q12H #20 tab 08/02/18 Naproxen [Naprosyn] 500 mg PO BID PRN #15 tablet 08/23/18 - Allergies Allergies/Adverse Reactions: Allergies Allergy/AdvReac Type Severity Reaction Status Date / Time No Known Allergies Allergy Verified 08/23/18 10:16 Review of Systems ROS Statement: Except As Marked, All Systems Reviewed And Found Negative Constitutional: Negative for: Fever Respiratory: Negative for: Cough Musculoskeletal: Positive for: Other (breast pain) Physical Exam - Reviewed Nursing Documentation Reviewed: Yes Vital Signs Reviewed: Yes - Physical Exam Appears: Positive for: Non-toxic, No Acute Distress Head Exam: Positive for: ATRAUMATIC, NORMAL INSPECTION, NORMOCEPHALIC Skin: Positive for: Normal Color, Warm, DRY Eye Exam: Positive for: EOMI, Normal appearance, PERRL ENT: Positive for: Normal ENT Inspection Cardiovascular/Chest: Positive for: Regular Rate, Rhythm, Other (Tender to inferior and lateral left breast; tender to palpation of left mid-sternal area ). Negative for: Murmur Respiratory: Positive for: Normal Breath Sounds. Negative for: Respiratory Distress Gastrointestinal/Abdominal: Positive for: Normal Exam, Soft. Negative for: Tenderness Back: Positive for: Normal Inspection Extremity: Positive for: Normal ROM. Negative for: Deformity, Swelling Neurologic/Psych: Positive for: Alert, Oriented. Negative for: Motor/Sensory Deficits - ECG O2 Sat by Pulse Oximetry: 100 (RA) Pulse Ox Interpretation: Normal Medical Decision Making Medical Decision Making: Time: 10:35 Plan: --Chest X-Ray --Naproxen 500 mg PO Accession No. : [id number] Patient Name / ID : JUSTINE BLACKBURN / [id number] Exam Date : 08/23/2018 10:27:36 ( Approved ) Study Comment : Sex / Age : F / 43Y Creator : Kamilla Choi V. Dictator : Kamilla Choi V. Aging Room Hand : Facepiece Line Supervisor : Kamilla Choi V. Approver2 : Report Date : 08/23/2018 11:17:39 My Comment : Date of service: 08/23/2018 HISTORY: L lateral chest pain COMPARISON: 09/27/2017 TECHNIQUE: Chest PA and lateral FINDINGS: LUNGS: No active pulmonary disease. PLEURA: No significant pleural effusion identified. No pneumothorax apparent. CARDIOVASCULAR: No aortic atherosclerotic calcification present. Normal cardiac size. No pulmonary vascular congestion. OSSEOUS STRUCTURES: No significant abnormalities. VISUALIZED UPPER ABDOMEN: The prior subdiaphragmatic free intraperitoneal gas is no longer noted. Right upper quadrant cholecystectomy clips noted similar OTHER FINDINGS: None. IMPRESSION: No interval acute cardiopulmonary pathology noted Scribe Attestation: Documented by, Kelly Odell acting as a scribe for Sun Herrera MD. Provider Scribe Attestation: All medical record entries made by the Scribe were at my direction and personally dictated by me. I have reviewed the chart and agree that the record accurately reflects my personal performance of the history, physical exam, medical decision making, and the department course for this patient. I have also personally directed, reviewed, and agree with the discharge instructions and disposition. Disposition - Clinical Impression Clinical Impression: Chest wall pain, Breast pain - Disposition Referrals: [facility] [Outside] Disposition: Routine/Home Disposition Time: 11:57 Condition: STABLE Additional Instructions: FOLLOW-UP WITH CLINIC FOR REEVALUATION AND MAMMOGRAM REFERRAL. Prescriptions: Naproxen [Naprosyn] 500 mg PO BID PRN #15 tablet PRN Reason: Pain, Moderate (4-7) Instructions: How to Perform Breast Self-Examination, Muscle and Bone Pain (DC) Forms: [employer] (Belarusian) Print Language: ZAMBIAN
--- NOTE | 2018-08-23 11:21 | RAD ---
Date of service: 08/23/2018 HISTORY: L lateral chest pain COMPARISON: 09/27/2017 TECHNIQUE: Chest PA and lateral FINDINGS: LUNGS: No active pulmonary disease. PLEURA: No significant pleural effusion identified. No pneumothorax apparent. CARDIOVASCULAR: No aortic atherosclerotic calcification present. Normal cardiac size. No pulmonary vascular congestion. OSSEOUS STRUCTURES: No significant abnormalities. VISUALIZED UPPER ABDOMEN: The prior subdiaphragmatic free intraperitoneal gas is no longer noted. Right upper quadrant cholecystectomy clips noted similar OTHER FINDINGS: None. IMPRESSION: No interval acute cardiopulmonary pathology noted
[2018-08-23 12:52] VITALS: BP 114/76; RESP 16; TEMP 98.1
[2018-08-26 12:41] VITALS: O2SAT 100
== END 2018-08-23 12:56 | disposition home or self-care (01) ==
LOC: H.ER 10:00
DX: R07.89 Other chest pain (principal); N64.4 Mastodynia; D64.9 Anemia, unspecified

== ENCOUNTER 2018-11-23 17:52 | Emergency (ER) | payer OTHER, SELFPAY ==
[2018-11-23 18:13] VITALS: BMI 29.3
--- NOTE | 2018-11-23 19:13 | ED PDOC ---
HPI: Female Pain Time Seen by Provider: 11/23/18 18:20 Chief Complaint (Nursing): Female Genitourinary Chief Complaint (Provider): Female Genitourinary History Per: Patient History/Exam Limitations: no limitations Onset/Duration Of Symptoms: Days (yesterday) Current Symptoms Are (Timing): Still Present Quality Of Discomfort: Burning, "Pain" Associated Symptoms: Urinary Symptoms. denies: Fever, Nausea, Vomiting, Diarrhea, Constipation Additional Complaint(s): 43 year old female with no PMHx presents to the ED with rectal bleeding and urinary symptoms onset yesterday. Patient reports symptoms worsened today, pr ompting ED visit. She has dysuria as well as rectal bleeding with bowel movement and constipation, but denies any fever, nausea, vomiting, diarrhea, r hematuria. PMD: [facility] Past Medical History Reviewed: Historical Data, Nursing Documentation, Vital Signs Vital Signs: Last Vital Signs Temp 98.7 F 11/23/18 18:14 Pulse 64 11/23/18 18:14 Resp BP 157/92 H 11/23/18 18:14 Pulse Ox 98 11/23/18 18:14 - Medical History PMH: Anemia, Gall Bladder Disease Denies: HIV, Chronic Kidney Disease - Surgical History Surgical History: Cholecystectomy - Family History Family History: States: Unknown Family Hx - Social History Current smoker - smoking cessation education provided: No Ex-Smoker (has not smoked in the last 12 months): No Alcohol: None Drugs: Denies - Home Medications Home Medications: Ambulatory Orders Medication Instructions Recorded RX: Docusate Sodium/Sennosides A 2 tab PO Q12 PRN #0 tab 11/18/16 [Senokot S 50 MG-8.6 MG] RX: Ferrous Sulfate [Feosol] 325 mg PO DAILY #30 tab 11/18/16 Metronidazole [Flagyl] 500 mg PO Q12 5 Days tablet 09/29/17 Pantoprazole Sodium [Protonix] 20 mg PO DAILY #30 ect 09/29/17 RX: Ciprofloxacin [Cipro] 500 mg PO DAILY #5 tab 09/29/17 RX: Naproxen 500 mg PO BID #20 ect 12/19/17 Dicyclomine [Bentyl] 20 mg PO Q6H PRN #20 tab 07/09/18 Ondansetron ODT [Zofran ODT] 4 mg PO QID #20 odt 07/09/18 Naproxen [Naprosyn] 500 mg PO Q12H #20 tab 08/02/18 Naproxen [Naprosyn] 500 mg PO BID PRN #15 tablet 08/23/18 Docusate Sodium [Colace] 100 mg PO BID PRN #20 capsule 11/23/18 - Allergies Allergies/Adverse Reactions: Allergies Allergy/AdvReac Type Severity Reaction Status Date / Time No Known Allergies Allergy Verified 08/23/18 10:16 Review of Systems ROS Statement: Except As Marked, All Systems Reviewed And Found Negative Constitutional: Negative for: Fever Gastrointestinal: Positive for: Constipation, Hematochezia. Negative for: Nausea, Vomiting, Diarrhea, Rectal Pain Genitourinary Female: Positive for: Dysuria. Negative for: Hematuria Physical Exam - Reviewed Nursing Documentation Reviewed: Yes Vital Signs Reviewed: Yes - Physical Exam Appears: Positive for: Non-toxic, No Acute Distress Head Exam: Positive for: ATRAUMATIC, NORMOCEPHALIC Skin: Positive for: Normal Color, Warm, Dry Eye Exam: Positive for: Normal appearance, EOMI, PERRL ENT: Positive for: Normal ENT Inspection Neck: Positive for: Normal Cardiovascular/Chest: Positive for: Regular Rate, Rhythm. Negative for: Murmur Respiratory: Positive for: Normal Breath Sounds. Negative for: Respiratory Distress Gastrointestinal/Abdominal: Positive for: Normal Exam, Soft. Negative for: Tenderness Rectal: Positive for: Rectal Tone Is: (normal), Other (perfomed digital exam but little stool came out. no blood.). Negative for: Black Stool, Blood Streaked Stool, Hemorrhoids, Mass Extremity: Positive for: Normal ROM (upper and lower) Neurologic/Psych: Positive for: Alert, Oriented (x3) - Laboratory Results Result Diagrams: 11/23/18 19:55 11/23/18 19:55 - ECG O2 Sat by Pulse Oximetry: 98 (RA) Pulse Ox Interpretation: Normal Medical Decision Making Medical Decision Making: Time: 1907 Plan: constipation, urinary symptoms rule out UTI --CBC --CMP --Toradol --Urine C&S --UA Time: 2246 CT abdomen and pelvis IMPRESSION: 1. The visualized heart is mildly enlarged. 2. Mild diffuse fatty infiltration of liver. 3. There has been a cholecystectomy. 4. Tiny hiatal hernia. 5. Question mild rectal wall thickening versus underdistention. Please correlate for the possibility of a mild proctitis. 6. More proximally, the colon demonstrates mild constipation. 7. Additional and incidental findings as described, please see comments. [id number] Upon provider reevaluation patient is feeling better, has no rectal pain, tolerated po. discussed results. she has no wbc count, no fever. she is medically stable, and requires no further treatment in the ED at this time. Patient will be discharged home with Rx for Colace. Counseling was provided and all questions were answered regarding diagnosis. There is agreement to discharge plan. Return if symptoms persist or worsen. Scribe Attestation: Documented by Sierra Carcamo, acting as a scribe for Vickie Rascon MD. Provider Scribe Attestation: All medical record entries made by the Scribe were at my direction and personally dictated by me. I have reviewed the chart and agree that the record accurately reflects my personal performance of the history, physical exam, medical decision making, and the department course for this patient. I have also personally directed, reviewed, and agree with the discharge instructions and disposition. Disposition - Clinical Impression Clinical Impression: Constipation - Patient ED Disposition Is Patient to be Admitted: No - Disposition Disposition: Routine/Home Disposition Time: 22:59 Condition: IMPROVED Additional Instructions: folllow up with your primary doctor in 1-2 days return to the ED with any worsening or concerning symptoms Prescriptions: Docusate Sodium [Colace] 100 mg PO BID PRN #20 capsule PRN Reason: Constipation Instructions: Constipation, Adult (DC) Forms: [employer] (Sri Lankan)
[2018-11-23 20:04] LABS: BASO % 0.6 % (0.0-2.0); EOS # 0.2 K/uL (0.0-0.7); EOS % 2.4 % (0.0-4.0); HEMOGLOBIN 13.9 g/dL (12.0-16.0); LYMPH # 2.5 K/uL (1.0-4.3); LYMPH % 31.1 % (20.0-40.0); MEAN CELL VOLUME 90.8 fl (81.0-99.0); MEAN CORPUSCULAR HEMOGLOBIN 30.3 pg (27.0-31.0); MEAN CORPUSCULAR HGB CONC 33.4 g/dL (33.0-37.0); MEAN PLATELET VOLUME 9.1 fl (7.2-11.7); MONO # 0.6 K/uL (0.0-0.8); NEUT # 4.7 K/uL (1.8-7.0); NEUT % 58.9 % (50.0-75.0); NRBC % 0.1 % (0.0-0.0); RBC 4.58 Mil/uL (3.80-5.20); RED CELL DISTRIBUTION WIDTH 13.1 % (11.5-14.5)
[2018-11-23 20:05] LABS: SQUAMOUS EPITHIAL < 1 /hpf (0-5); URINE BILIRUBIN NEGATIVE (NEGATIVE); URINE BLOOD NEGATIVE (NEGATIVE); URINE CLARITY CLEAR (Clear); URINE COLOR STRAW (YELLOW); URINE GLUCOSE (UA) NEG (NEGATIVE); URINE LEUKOCYTE ESTERASE NEG Leu/uL (Negative); URINE PROTEIN NEGATIVE (NEGATIVE); URINE UROBILINOGEN 0.2-1.0 mg/dL (0.2-1.0)
[2018-11-23 20:09] LABS: ALB/GLOB RATIO 1.5 (1.0-2.1); ALBUMIN 4.6 g/dL (3.5-5.0); ALT/SGPT 26 U/L (9-52); AST/SGOT 20 U/L (14-36); BLOOD UREA NITROGEN 9 mg/dl (7-17); CALCIUM 9.4 mg/dL (8.4-10.2); GFR NON-AFRICAN AMERICAN > 60
[2018-11-23] MEDS ORDERED: Iohexol 300 100 ML IJ ONE (21:23)
[2018-11-23] MEDS ORDERED: Sodium Chloride 0.9% 50 ML IV ONE (21:23)
[2018-11-24 03:01] VITALS: BP 103/70; PULSE 60; RESP 18; TEMP 97.7; O2SAT 100
--- NOTE | 2018-11-24 13:35 | CT ---
Date of service: 11/23/2018 PROCEDURE: CT Abdomen and Pelvis with contrast HISTORY: l sided pain COMPARISON: 09/27/2017 TECHNIQUE: Contrast dose: 90 mL Omnipaque 300 Radiation dose: Total exam DLP = 391.8 mGy-cm. This CT exam was performed using one or more of the following dose reduction techniques: Automated exposure control, adjustment of the mA and/or kV according to patient size, and/or use of iterative reconstruction technique. FINDINGS: LOWER THORAX: Unremarkable. LIVER: Unremarkable. No gross lesion or ductal dilatation. GALLBLADDER AND BILE DUCTS: Cholecystectomy PANCREAS: Unremarkable. No gross lesion or ductal dilatation. SPLEEN: Unremarkable. ADRENALS: Unremarkable. No mass. KIDNEYS AND URETERS: Unremarkable. No hydronephrosis. No solid mass. VASCULATURE: Unremarkable. No aortic aneurysm. No aortic atherosclerotic calcification or mural plaque present. BOWEL: Mild mural thickening of the rectum which may be artifactual due to inadequate distension but also raises concern of neoplasm or proctitis. Recommend correlation with endoscopy. No other abnormal bowel loops are appreciated. No bowel obstruction. APPENDIX: Normal appendix. PERITONEUM: Unremarkable. No free fluid. No free air. LYMPH NODES: Unremarkable. No enlarged lymph nodes. BLADDER: Unremarkable. REPRODUCTIVE: Status post hysterectomy BONES: No acute fracture. OTHER FINDINGS: None. IMPRESSION: Mild circumferential mural thickening of the rectum, possibly artifactual due to inadequate distention. Nevertheless, further evaluation is suggested. Status post hysterectomy. Status post cholecystectomy. Otherwise unremarkable. The preliminary findings for this examination were reported by [facility] at 10:47 p.m. on 11/23/2018. There is concurrence of this report with the preliminary findings.
== END 2018-11-24 00:10 | disposition home or self-care (01) ==
LOC: H.ER 17:52
DX: K59.00 Constipation, unspecified (principal); K76.0 Fatty (change of) liver, not elsewhere classified; K44.9 Diaphragmatic hernia without obstruction or gangrene
CPT/HCPCS: 74177; 80053; 81003; 81025; 85025; 87086; 96374; 99284; J1885; J2270; J2405; Q9967